=== PATIENT | female | born 2005 | race Caucasian/White ===

== ENCOUNTER 2025-02-04 11:05 | Outpatient (OUT) | payer BC, SELFPAY ==
--- OUTSIDE RECORDS SUMMARY | 2023-09-06 06:10 | XMS_ITS ---
Author Organization [facility] Servic es Address [address] [place] [address] Care Team Providers Care Office Worker Name Role Phone Milly Earl Primary Care Provider REASON FOR VISIT NEW PT DENTAL EXAM Encounters Encounter Location Date Provider Diagnosis [facility] [address] [place] [address] 09/06/2023 Milly Earl Plan Of Treatment No Information Progress Notes * GARRETT MARINDAQUANOB: 3 (19 yo F)Acc No.[id number]:09/06/2023 Patient: BRYCE STRAUSS Provider: Anne Marie Earl DDS :2005 A ge:18 Y S ex:Female Date:09/06/2023 Address:[address] [place], [place] [phone] Subjective: * Chief Complaints: * 1 . NEW PT DENTAL EXAM. * Medical History: Objective: * Vitals: Assessment: Plan: * Treatment: * Images: * Electronic signature of Sisi Earl DDS on 02/04/2025 at 11:13 AM EDT Sign off status: Pending * Provider: Anne Marie Earl DDS Date: 09/06/2023 Generated for Shelby palmer/Gerard/Lisa on: 0 02/04/2025 11:13 AM EDT
--- OUTSIDE RECORDS SUMMARY | 2024-11-19 04:30 | XMS_ITS ---
Author Organization [facility] Servic es Address [address] [place] [address] Care Team Providers Care Medical Billing Associate Name Role Phone Milly Earl Primary Care Provider REASON FOR VISIT FILLING Encounters Encounter Location Date Provider Diagnosis [address] [place] [address] 11/19/2024 Milly Earl Plan Of Treatment No Information Progress Notes * SHANDRA MARINOB: 3 (19 yo F)Acc No.[id number]:11/19/2024 Patient: BRYCE STRAUSS Provider: Anne Marie Earl DDS :2005 A ge:19 Y S ex:Female Date:11/19/2024 Address:[address] [place], [place] [phone] Subjective: * Chief Complaints: * 1 . FILLING. * Medical History: Objective: * Vitals: Assessment: Plan: * Treatment: * Images: * Electronic signature of Sisi Earl DDS on 02/04/2025 at 11:13 AM EDT Sign off status: Pending * Provider: Anne Marie Earl DDS Date: 11/19/2024 Generated for Shelby palmer/Gerard/Lisa on: 0 02/04/2025 11:13 AM EDT
--- OUTSIDE RECORDS SUMMARY | 2025-01-21 09:10 | XMS_ITS | Encounter Summary ---
Author Organization [facility] Address [address] [place] [address] Care Team Providers Care Drafting Engineer Name Role Phone Unallocated, Noms Provider [facility] Reason for Visit * Reason Comments Infertility Encounter Details Date Type Department Care Team (Late st Contact Info) Description 01/21/2025 9:10 AM EDT Office Visit [facility] [address] [place] [address] Bruno Govea DO [address] [place] [phone] Female infertility; PCOS (polycystic ovarian syndrome); Missed menses; Abnormal uterine bleeding (AUB); Elevated prolactin level Social History Tobacco Use Types Packs/Day Years Used Date Smoking Tobacco: Never Smokeless Tobacco: Never Alcohol Use Standard Drinks/Week Comments Never 0 (1 standard drink = 0.6 oz pur e alcohol) Comments No Sex and Gender Information Value Date Recorded Sex Assigned at Not on file Legal Sex Female 7:21 PM EDT Gender Identity Not on file Sexual Orientation Not on file documented as of this encounter Last Filed Vital Signs Vital Sign Reading Time Taken Comments Blood Pressure 122/78 01/21/2025 9:40 AM EDT Pulse - - Temperature - - Respiratory Rate - - Oxygen Saturation - - Inhaled Oxygen Concentration - - Weight 124 kg (274 lb) 01/21/2025 9:40 AM EDT Height - - Body Mass Index 41.66 11/24/2022 4:13 PM EDT documented in this encounter Progress Notes * Yari Rand, DRAIN LAYER - 01/21/2025 9:10 AM EDT Reason for Appointment: Patient ID: Jackelyn Fuentes is a 19 y.o. female who presents for Infertility Patient presents today for Acute Visit. and Consult appointment. MEDICATIONS Current Outpatient Medications Medication Instructions cyclobenzaprine (FLEXERIL) 10 mg, 3 times daily PRN ibuprofen 800 MG tablet Every 8 hours naproxen (NAPROSYN) 500 mg, 2 times daily with meals Vit-Fe Fumarate-FA ( Vitamins) 28-0.8 MG tablet TAKE 1 TABLET BY MOUTH DAILY for desire to conceive ALLERGIES No Known Allergies PROBLEMS Active Ambulatory Problems Diagnosis Date Noted No Active Ambulatory Problems Resolved Ambulatory Problems Diagnosis Date Noted No Resolved Ambulatory Problems Past Medical History: Diagnosis Date Asthma (HCC) HISTORY PAST MEDICAL HISTORY SOCIAL HISTORY Past Medical History: Diagnosis Date Asthma (HCC) Social History Tobacco Use Smoking status: Never Smokeless tobacco: Never Vaping Use Vaping status: Every Day Substances: Nicotine Substance Use Topics Alcohol use: Never Drug use: Never FAMILY HISTORY No family history on file. SURGICAL HISTORY History reviewed. No pertinent surgical history. REVIEW OF SYSTEMS Review of Systems: Review of Systems Constitutional: Negative. HENT: Negative. Eyes: Negative. Respiratory: Negative. Cardiovascular: Negative. Gastrointestinal: Negative. Genitourinary: Positive for menstrual problem. Musculoskeletal: Negative. Skin: Negative. Neurological: Negative. All other systems reviewed and are negative. Hematological: Negative. Endocrine: Negative. Allergic/Immunologic: Negative. OBJECTIVE Objective: Physical Exam Constitutional: Appearance: Normal appearance. She is well-developed. Cardiovascular: Rate and Rhythm: Normal rate and regular rhythm. Pulmonary: Effort: Pulmonary effort is normal. Breath sounds: Normal breath sounds. Abdominal: General: Bowel sounds are normal. There is no distension. Palpations: Abdomen is soft. Tenderness: There is no abdominal tenderness. There is no guarding or rebound. Musculoskeletal: General: No swelling. Normal range of motion. Right lower leg: No edema. Left lower leg: No edema. Neurological: Mental Status: She is alert and oriented to person, place, and time. Skin: General: Skin is warm and dry. Psychiatric: Mood and Affect: Mood normal. Behavior: Behavior normal. Vitals and nursing note reviewed. Exam conducted with a catcher plug present. Vitals: Estimated body mass index is 41.66 kg/m?? as calculated from the following: Height as of 11/24/22: 5' 8 . Weight as of this encounter: 274 lb. BP: 122/78 Patient's last menstrual period was 12/09/2024 (approximate). ASSESSMENT & PLAN ICD-10-CM 1. Female infertility N97.9 2. PCOS (polycystic ovarian syndrome) E28.2 POCT , urine manually resulted 3. Missed menses N92.6 POCT , urine manually resulted Pt being seen for PCOS and fertility. Pt is on adipex and will stop once conceives. Pt to start metformin at 500mg. Pt given labs and ultrasound orders and partner was given semen analysis. Pt to return to discuss femara in 3 months. Documented by Yari Rand LPN on behalf of: Bruno Govea DO documented in this encounter Plan of Treatment Upcoming Encounters Date Type Department Care Team (Late st Contact Info) Description 04/29/2025 9:40 AM EST Office Visit [facility] [address] [place] [phone] Bruno Govea DO [address] [place] [address] Pending Results Name Type Priority Associated Diagnoses Date /Time US Pelvis w/ TV Imaging Routine PCOS (polycystic ovarian syndrome) Abnormal uterine bleeding (AUB) 02/04/2025 11:01 AM EDT Scheduled Orders Name Type Priority Associated Diagnoses Orde r Schedule hCG, quantitative, Lab Routine PCOS (polycystic ovarian syndrome) Abnormal uterine bleeding (AUB) Ordered: 01/21/2025 TSH Lab Routine PCOS (polycystic ovarian syndrome) Abnormal uterine bleeding (AUB) Ordered: 01/21/2025 T4, free Lab Routine PCOS (polycystic ovarian syndrome) Abnormal uterine bleeding (AUB) Ordered: 01/21/2025 CBC and differential Lab Routine PCOS (polycystic ovarian syndrome) Abnormal uterine bleeding (AUB) Ordered: 01/21/2025 Follicle stimulating hormone Lab Routine PCOS (polycystic ovarian syndrome) Abnormal uterine bleeding (AUB) Ordered: 01/21/2025 Luteinizing hormone Lab Routine PCOS (polycystic ovarian syndrome) Abnormal uterine bleeding (AUB) Ordered: 01/21/2025 Hemoglobin A1c Lab Routine Abnormal uterine bleeding (AUB) Ordered: 01/21/2025 DHEA-sulfate Lab Routine PCOS (polycystic ovarian syndrome) Abnormal uterine bleeding (AUB) Ordered: 01/21/2025 DHEA Lab Routine PCOS (polycystic ovarian syndrome) Abnormal uterine bleeding (AUB) Expected: 01/21/2025 (Approximate), Expires: 01/21/2026 US Pelvis w/ TV Imaging Routine PCOS (polycystic ovarian syndrome) Abnormal uterine bleeding (AUB) Expected: 01/21/2025, Expires: 01/21/2026 Prolactin Lab Routine PCOS (polycystic ovarian syndrome) Abnormal uterine bleeding (AUB) Elevated prolactin level Ordered: 01/21/2025 Antimullerian hormone (AMH) Lab Routine PCOS (polycystic ovarian syndrome) Abnormal uterine bleeding (AUB) Expected: 01/21/2025 (Approximate), Expires: 01/21/2026 documented as of this encounter Procedures Procedure Name Priority Date/Time Associated Diagnosis Comments POCT , URINE Routine 01/21/2025 9:44 AM EDT PCOS (polycystic ovarian syndrome) Missed menses documented in this encounter Results * POCT , urine manually resulted (01/21/2025 9:44 AM EDT) Preg Test, Ur Negative Negative Urine 01/21/2025 9:44 AM EDT Bruno Jeferson DO POINT OF CARE TEST ENTER/EDIT OR DERABLES Final Result documented in this encounter Visit Diagnoses Diagnosis Female infertility Female infertility of unspecified origin PCOS (polycystic ovarian syndrome) Polycystic ovaries Missed menses Abnormal uterine bleeding (AUB) Elevated prolactin level documented in this encounter Care Teams Drafting Engineer Relationship Specialty Start Date End Date Unallocated, Noms Provider, [place] [address] PCP - General 11/24/22 documented as of this encounter
--- OUTSIDE RECORDS SUMMARY | 2025-02-04 09:30 | XMS_ITS | Encounter Summary ---
Author Organization [facility] Address [address] [place] [address] Care Team Providers Care Audiovisual Production Specialist Name Role Phone Unallocated, Noms Provider [facility] am[facility] Encounter Details Date Type Department Care Team (Latest Contact Info) Description 02/04/2025 9:30 AM EDT Ancillary Procedure [facility] [address] [place] [address] PCOS (polycystic ovarian syndrome); Abnormal uterine bleeding (AUB) Social History Tobacco Use Types Packs/Day Years [...] on file documented as of this encounter Plan of Treatment Upcoming Encounters Date Type Department Care Team (Late st Contact Info) Description 04/29/2025 9:40 AM EST Office Visit [facility] [address] [place] [phone] Bruno Govea DO [address] [place], [place] [phone] Pending Results Name Type Priority Associated Diagnoses Date /Time US Pelvis w/ TV Imaging Routine PCOS (polycystic ovarian syndrome) Abnormal uterine bleeding (AUB) 02/04/2025 11:01 AM EDT documented as of this encounter Visit Diagnoses Diagnosis PCOS (polycystic ovarian syndrome) Polycystic ovaries Abnormal uterine bleeding (AUB) documented in this encounter Care Teams Audiovisual Production Specialist Relationship Specialty Start Date End Date Unallocated, Noms Provider[place] [address] PCP - General 11/24/22 documented as of this encounter
--- OUTSIDE RECORDS SUMMARY | 2025-02-04 11:13 | XMS_ITS | Encounter Summary ---
Author Organization [facility] Address [address], [address] [place] [address] Care Team Providers Care Underpresser Hand Name Role Phone Willow Busby APRN, CNP Primary Care Provider Reason for Visit * Reason Onset Date Comments Medication Refill 01/29/2025 Encounter Details Date Type Department Care Team (Late st Contact Info) Description 01/29/2025 Refill [facility] [place] [address] [place] [address] Willow Busby, MELANIE - ANIMAL CARE TECHNICIAN [address] [phone] Medication Refill Social History Tobacco Use Types Packs/Day Years Used Date Smoking Tobacco: Never Smokeless Tobacco: Never Alcohol Use Standard Drinks/Week Comments Yes 0 (1 standard drink = 0.6 oz pur e alcohol) socially [facility] Utilities Answer Date Recorded In the past 12 months has [employer] electric, gas, oil, or water company threatened to shut off services in your home? No 08/19/2024 AUDIT-C Answer Date Recorded Q1: How often do you have a drink containing alcohol? Never 11/07/2022 Q2: How many drinks containi ng alcohol do you have on a typical day when you are drinking? Patient does not drink Q3: How often do you have si x or more drinks on one occasion? Never 11/07/2022 PHQ-2 Answer Date Recorded PHQ-9 Total Score 0 08/19/2024 Exercise Vital Sign Answer Date Recorde d On average, how many days pe r week do you engage in moderate to strenuous exercise (like a brisk walk)? 4 days 08/18/2024 On average, how many minutes do you engage in exercise at this level? 150+ min 08/18/2024 Hunger Vital Sign Answer Date Recorded Within the past 12 months, y ou worried that your food would run out before you got the money to buy more. Never true 08/19/19 25 Within the past 12 months, t he food you bought just didn't last and you didn't have money to get more. Never true 08/19/2024 PRAPARE - Transportation Answer Date Re corded In the past 12 months, has l ack of transportation kept you from medical appointments or from getting medications? No 07/28 In the past 12 months, has l ack of transportation kept you from meetings, work, or from getting things needed for daily living? No 08/19/2024 Housing Stability Vital Sign Answer Mic e Recorded In the last 12 months, was t here a time when you were not able to pay the mortgage or rent on time? No 08/19/2024 In the past 12 months, how m any times have you moved where you were living? 0 08/19/2024 At any time in the past [address] [facility], were you homeless or living in a retirement (including now)? No 08/19/2024 Food Insecurity Answer Date Recorded Within the past 12 months, y ou worried that your food would run out before you got the money to buy more. 1 08/19/2024 Within the past 12 months, t he food you bought just didn't last and you didn't have money to get more. 1 08/19/2024 Interpersonal Safety Domain Source: IP Abuse Scr eening Answer Date Recorded Read-Only, Retired: Physical Abuse Denies 11/07/2022 Read-Only, Retired: Verbal Abuse Denies 11/07/2022 Read-Only, Retired: Emotional abuse Denies 11/07/2022 Read-Only, Retired: Financial Abuse Denies 11/07/2022 Read-Only, Retired: Sexual abuse Denies 11/07/2022 Comments No Sex and Gender Information Value Date Recorded Sex Assigned at Female 08/18/2024 1:55 PM EST Legal Sex Female 10:09 AM EST Gender Identity Female 08/18/2024 1:55 PM EST Sexual Orientation Not on file documented as of this encounter Plan of Treatment Upcoming Encounters Date Type Department Care Team (Late st Contact Info) Description 04/28/2025 4:20 PM EST Clinical Support [facility] [place] [address] [place] [address] Hep B shot documented as of this encounter Visit Diagnoses Not on filedocumented in this encounter Care Teams Underpresser Hand Relationship Specialty Start Date End Date Willow Busby APRN - ANIMAL CARE TECHNICIAN [address] [place] [phone] PCP - General Family Medicine 08/19/24 documented as of this encounter
--- OUTSIDE RECORDS SUMMARY | 2025-02-04 11:13 | XMS_ITS | Encounter Summary ---
Author Organization [facility] Address [address] [place] [address] Care Team Providers Care Aircraft Engine Cylinder Mechanic Name Role Phone Unallocated, Noms Provider Primary Care [facility] Encounter Details Date Type Department Care Team (Late Contact Info) Description 01/21/2025 Bamboo flowsheet [facility] [address] [facility] [place] [address] Bruno Govea DO [address] [place], [place] [address] Social History Tobacco Use Types Packs/Day Years [...] Encounters Date Type Department Care Team (Late Contact Info) Description 04/29/2025 9:40 AM EST Office Visit [facility] [address] [facility] [place] [address] Bruno Govea DO [address] [facility] [address] [place], [facility] documented as of this encounter Visit Diagnoses Not on filedocumented in this encounter Care Teams Aircraft Engine Cylinder Mechanic Relationship Specialty Start Date End Date Unallocated, Noms Provider, [address] [place], [place] [phone] PCP - General 11/24/22 documented as of this encounter
--- OUTSIDE RECORDS SUMMARY | 2025-02-04 11:13 | XMS_ITS | Patient Health Record ---
Author Organization [facility] Address [address] [place] [address] Care Team Providers Care Blind Hanger Name Role Phone Milly Earl Primary Care Provider [phone] Dr. Charbel Brandon Unavailable [phone] Reason For Referral No Information Medications Medication SIG (Take, Route, Fr equency, Duration) Notes Start Date End Date Status Ibuprofen 800 MG 1 tablet with food o r milk as needed Orally Three times a day 07/29/2024 Active Encounters Encounter Location Date Provider Diagnosis [facility] [address] [place] [address] 08/19/2024 Charbel Sanchez [address] [place] [address] 07/29/2024 Charbel Sanchez Other dental procedu re status Z98.818 ; Encounter for dental examination and cleaning with abnormal findings Z01.21 ; Dental caries on pit and fissure surface penetrating into dentin K02.52 ; Acute gingivitis, plaque induced K05.00 and Necrosis of pulp K04.1 Assessments Encounter Date Diagnosis (ICD Code) Assessment Notes Treatment Notes Treatment Clinical Notes Section Notes 07/29/2024 Other dental procedure status (ICD-10 - Z98.818) 07/29/2024 Encounter for dental examination and cleaning with abnormal findings (ICD-10 - Z01.21) 07/29/2024 Dental caries on pit and fissure surface penetrating into dentin (ICD-10 - K02.52) 07/29/2024 Acute gingivitis, plaque induced (ICD-10 - K05.00) 07/29/2024 Necrosis of pulp (ICD-10 - K04.1) Plan Of Treatment No Information Insurance Providers Payer Name Payer Address Payer Phone Subscriber Number Group Number Insured Name Patient Relationship to Insured Coverage Start Date Coverage End Date [employer] [place] Medicaid [address] [place] [address] [id number] TANIAGARRETTE Self - patient is the insured [address] [facility] [address] [place] [address] [id number] BRYCE MARIN Self - patient is the insured [address] [facility] [address] [place] [id number] TANIAGARRETTE Self - patient is the insured 4 4 DENTAL [employer] [address] [place] [address] [id number] BRYCE MARIN Self - patient is the insured 4
--- OUTSIDE RECORDS SUMMARY | 2025-02-04 11:13 | XMS_ITS | Encounter Summary ---
Author Organization [facility] Address [address], [address] [place] [address] Care Team Providers Care Angio Technologist Name Role Phone Willow Busby APRN - DATA CONTROL ASSISTANT Primary Care Provider Encounter Details Date Type Department Care Team (Late st Contact Info) Description 08/20/[address] [facility] [place] [address] [place] [address] Provider, MD Liat Social History Tobacco Use Types Packs/Day Years Used Date Smoking Tobacco: Never Smokeless Tobacco: Never Alcohol Use Standard Drinks/Week Comments Yes 0 (1 standard drink = 0.6 oz pur e alcohol) socially [facility] Utilities Answer Date Recorded In the past 12 months has [employer] electric, gas, oil, or water company threatened [...] any time in the past 12 m [facility], were you homeless or living in a fpc (including now)? No 08/19/2024 Food Insecurity Answer [...] Description 04/28/2025 4:20 PM EST Clinical Support [facility] [place] [address] [place] [address] Hep B shot documented as of this encounter Procedures Procedure Name Priority Date/Time Associated Diagnosis Comments LAB RESULT Routine 12/29/2022 10:07 AM EDT documented in this encounter Results * LAB RESULT (12/29/2022 10:07 AM EDT) us Historical Provider CHEMISTRY ORDERABLES Shanice l Result documented in this encounter Visit Diagnoses Not on filedocumented in this encounter Care Teams Angio Technologist Relationship Specialty Start Date End Date Willow Busby, SLAT GRADER - DATA CONTROL ASSISTANT [address] [place] [address] PCP - General Family Medicine 08/19/24 documented as of this encounter
--- OUTSIDE RECORDS SUMMARY | 2025-02-04 11:13 | XMS_ITS | Clinical Summary ---
Author Organization [facility] Address [address], [address] [place] [address] Care Team Providers Care Activity Leader Name Role Phone Willow Busby APRN - COAT CHECK ATTENDANT Primary Care Provider Allergies No known active allergies Medications naproxen (NAPROSYN) 500 MG tablet Take 1 tablet by mouth 2 times daily (with meals) 20 tablet 5 Active Vit-Fe Fumarate-FA ( VITAMINS) 28-0.8 MG TABS Take 1 tablet by mouth daily For desire to conceive 30 tablet 1 5 Active Vit-Fe Fumarate-FA ( VITAMINS) 28-0.8 MG TABS Take 1 tablet by mouth daily For desire to conceive 30 tablet 2 5 01/30/20 25 Discontinu ed(REORDER ) phentermine (ADIPEX-P) 37.5 MG tabletIndication s:Encounter for weight management,Morbi d obesity with BMI of 40.0-44.9, adult (HCC),Use teratogenic medication in female of reproductive age Take 1 tablet by mouth every morning (before breakfast) for 30 days. BMI 42.8 32 # weight loss, doing well Max Daily Amount: 37.5 mg 30 tablet 5 01/23/20 25 Active Problems Problem Noted Date Diagnosed Date Abnormal thyroid stimulating hormone (TSH) level 07/15/2022 Acanthosis nigricans 07/15/2022 Amenorrhea 07/15/2022 Elevated blood pressure read ing without diagnosis of hypertension 07/15/2022 Exposure to severe acute res piratory syndrome coronavirus 2 (SARS-CoV-2) 07/15/2022 Headache 07/15/2022 Loss of hair 07/15/2022 Nasal congestion 07/15/2022 Poor sleep pattern 07/15/2022 Presence of intrauterine contraceptive device Acute pharyngitis 02/03/2022 Abnormal uterine bleeding 11/01/2021 Adult body mass index 40 and over 11/01/2021 Morbid obesity 11/01/2021 Obstructive sleep apnea syndrome 11/01/2021 Encounters Date Type Department Care Team Description 01/29/[address] [address] Willow Busby, GUN PERFORATOR - COAT CHECK ATTENDANT Medication Refill 12/23/2024 2:20 PM EDT Office Visit [address] [address] Willow Busby, GUN PERFORATOR - COAT CHECK ATTENDANT Encounter for weight management (Primary Dx); Morbid obesity with BMI of 40.0-44.9, adult (HCC); Use teratogenic medication in female of reproductive age; Need for hepatitis B vaccination 11/27/2024 Abstract [facility] Care [address] [address] Willow Busby GUN PERFORATOR - COAT CHECK ATTENDANT 11/25/2024 4:15 PM EDT Clinical Support [address] [address] Encounter for weight management (Primary Dx); Morbid obesity with BMI of 40.0-44.9, adult (HCC); Use teratogenic medication in female of reproductive age; Blood pressure check 11/21/2024 11:45 AM EDT Clinical Support [address] [address] Encounter for weight management; Morbid obesity with BMI of 40.0-44.9, adult (HCC) 11/13/[address] [address] Willow Busby, MELANIE - QUIANA Medication Refill from Last 3 Months Immunizations Immunization Administration Dates Next Due Hep B, ENGERIX-B, (age 20y+), IM, 1mL 12/23/2024 ,10/21/2024 MMR, PRIORIX, M-M-R II, (age 12m+), SC, 0.5mL Family History Medical History Relation Name Comments Kidney Cancer Maternal Grandfather Liver Cancer Maternal Grandfather Arthritis Maternal Grandmother COPD Paternal Grandmother Relation Name Status Comments Brother Alive Father Alive Half-Brother Alive Half-Sister Alive Maternal Grandfather Alive Maternal Grandmother Alive Mother Alive Paternal Grandfather Paternal Grandmother Alive Social History Tobacco Use Types Packs/Day Years Used Date Smoking Tobacco: Never Smokeless Tobacco: Never Tobacco Cessation:Counseling Given: Not Answered Alcohol Use Standard Drinks/Week Comments Yes 0 (1 standard drink = 0.6 oz pur e alcohol) [employer] Answer Date Recorded In the past 12 months has th e [employer], gas, oil, or water [employer] threatened to shut off services in your [...] any time in the past [address] [facility], were you homeless or living [...] PM EST Sexual Orientation Not on file Last Filed Vital Signs Vital Sign Reading Time Taken Comments Blood Pressure 122/80 12/23/2024 2:32 PM EDT Pulse 78 12/23/2024 2:32 PM EDT Temperature 36.8 C (98.2 F) 09/20/2024 2:38 PM EDT Respiratory Rate 24 09/20/2024 2:38 PM EDT Oxygen Saturation 99% 12/23/2024 2:32 PM EDT Inhaled Oxygen Concentration - - Weight 124.7 kg (275 lb) 12/23/2024 2:32 PM EDT Height 170.7 cm (5' 7.21 ) 12/23/2024 2:32 PM ED T Body Mass Index 42.8 12/23/2024 2:32 PM EDT Plan of Treatment Upcoming Encounters Date Type Department Care Team (Late st Contact Info) Description 04/28/2025 4:20 PM EST Clinical Support [facility] Care [place] [address] [place] [address] Hep B shot Health Maintenance Due Date Last Done Comments Hepatitis A vaccine (2 of 2 - 2-dose series) 08/23/2008 02/22/2008 HIV screen 2018 HPV vaccine (1 - 3-dose series) 2018 Chlamydia/GC screen 2019 Meningococcal B vaccine (1 of 2 - Standard) 2019 Hepatitis C screen 2021 COVID-19 Vaccine ( season) 2024 07/04/2021, 12/23/2020, 12/02/2020 Pap smear 2024 Varicella vaccine (1 of 2 - 13+ 2-dose series) 10/21/2024 Flu vaccine (#1) 01/24/2025 06/05/2009 Depression Screen 08/19/2025 08/19/2024, 08/19/2024 DTaP/Tdap/Td vaccine (7 - Td or Tdap) 11/18/2025 11/19/2015, 02/22/2008, 02/16/2007, Additional history exists Pneumococcal 0-49 years Vaccine Aged Out 2003, 2003 No longer eligibl e based on patient's age to complete this topic Hib vaccine Completed 02/22/2008, 10/24, 2003, Additional history exists Polio vaccine Completed 02/22/2008, 01/25, 2003, Additional history exists Meningococcal (ACWY) vaccine Aged Out 11/19/2015 No longer eligible based on patient's age to complete this topic Measles,Mumps,Rubella (MMR) vaccine Discontinued 09/23/2024, 02/22/2008, 02/16/2007, Additional history exists Hepatitis B vaccine Completed 12/23/2024, 10/21/2024, 2003, Additional history exists Procedures Procedure Name Priority Date/Time Associated Diagnosis Comments POCT URINE Routine 12/23/2024 3:11 PM EDT Use teratogenic medication in female of reproductive age from Last 3 Months Results * POCT urine (12/23/2024 3:11 PM EDT) Preg Test, Ur Negative Negative Control Present 12/23/2024 3:11 PM EDT Willow Busby GUN PERFORATOR - COAT CHECK ATTENDANT POINT OF CARE TEST TAPAN LAU Final Result from Last 3 Months Insurance BC Care Teams Activity Leader Relationship Specialty Start Date End Date Willow Busby, GUN PERFORATOR - COAT CHECK ATTENDANT [address] [place], [place] [phone] PCP - General Family Medicine 08/19/24
[2025-02-04 11:45] LABS: Hematocrit 36.9 % (36.0-48.0); Hemoglobin 13.1 g/dL (12.0-16.0); Immature Granulocytes Abs Auto 0.02 10^3/uL (0.00-0.03); Immature Granulocytes Pct Auto 0.2 % (0.0-0.5); Lymphocytes Absolute Auto 2.8 10^3/uL (1.2-3.8); Mean Corpuscular HGB Conc 35.5 g/dL (29.9-35.2); Mean Corpuscular Hemoglobin 32.0 pg (26.7-34.0); Mean Corpuscular Volume 90.0 fL (81.0-99.0); Platelet Count 289 10^3/uL (150-450); Red Blood Count 4.10 10^6/uL (4.20-5.40); White Blood Count 8.8 10^3/uL (4.0-11.0)
[2025-02-04 12:16] LABS: Thyroid Stimulating Hormone 3.657 uIU/mL (0.358-3.740)
[2025-02-05 08:09] LABS: FSH 4.3 mIU/mL (.)
== END 2025-02-04 11:06 | disposition home or self-care (01) ==
PROVIDERS: PCP Nurse Practitioner Primary Care; Visit Provider Obstetrics & Gynecology
DX: E28.2 Polycystic ovarian syndrome (principal); N93.9 Abnormal uterine and vaginal bleeding, unspecified; R79.89 Other specified abnormal findings of blood chemistry
CPT/HCPCS: 36415; 82397; 82626; 82627; 83001; 83002; 83036; 84146; 84439; 84443; 84702; 85025

== ENCOUNTER 2025-02-26 17:00 | Outpatient (RCR) | payer BC, SELFPAY ==
--- OUTSIDE RECORDS SUMMARY | 2023-09-06 06:10 | XMS_ITS ---
Author Organization [facility] Servic es Address [address] [place] [address] Care Team Providers Care Tipple Supervisor Name Role Phone Milly Earl Primary Care Provider [phone] REASON FOR VISIT NEW PT DENTAL EXAM Encounters Encounter Location Date Provider Diagnosis [facility] [address] [place] [address] 09/06/2023 Milly Earl Plan Of Treatment No Information Progress Notes * GARRETT MARINDAQUANOB: 3 (19 yo F)Acc No.[id number]:09/06/2023 Patient: BRYCE STRAUSS Provider: Anne Marie Earl DDS :2005 A ge:18 Y S ex:Female Date:09/06/2023 Address:[address] [place], [place] [phone] Subjective: * Chief Complaints: * 1 . NEW PT DENTAL EXAM. * Medical History: Objective: * Vitals: Assessment: Plan: * Treatment: * Images: * Electronic signature of Sisi Earl DDS on 02/26/2025 at 05:03 PM EDT Sign off status: Pending * Provider: Anne Marie Earl DDS Date: 09/06/2023 Generated for Shelby palmer/Gerard/Lisa on: 0 02/26/2025 05:03 PM EDT
--- OUTSIDE RECORDS SUMMARY | 2024-11-19 04:30 | XMS_ITS ---
Author Organization [facility] Servic es Address [address] [place] [address] Care Team Providers Care Clinical Dental Technician Name Role Phone Milly Earl Primary Care Provider [phone] REASON FOR VISIT FILLING Encounters Encounter Location Date Provider Diagnosis [address] [place] [address] 11/19/2024 Milly Earl Plan Of Treatment No Information Progress Notes * SHANDRA MARINOB: 3 (19 yo F)Acc No.[id number]:11/19/2024 Patient: BRYCE STRAUSS Provider: Anne Marie Earl DDS :2005 A ge:19 Y S ex:Female Date:11/19/2024 Address:[address] [place], [place] [phone] Subjective: * Chief Complaints: * 1 . FILLING. * Medical History: Objective: * Vitals: Assessment: Plan: * Treatment: * Images: * Electronic signature of Sisi Earl DDS on 02/26/2025 at 05:03 PM EDT Sign off status: Pending * Provider: Anne Marie Earl DDS Date: 11/19/2024 Generated for Shelby palmer/Gerard/Lisa on: 0 02/26/2025 05:03 PM EDT
--- OUTSIDE RECORDS SUMMARY | 2025-02-11 04:00 | XMS_ITS ---
Author Organization [facility] Address [address] [place] [address] Care Team Providers Care Physician'S Aide Name Role Phone Milly Earl Primary Care Provider [phone] Jayde Arias Unavailable [phone] REASON FOR VISIT PROPHY Encounters Encounter Location Date Provider Diagnosis [address] [place] [address] 02/11/2025 Jayde Rodriguez Plan Of Treatment No Information Progress Notes * GARRETT MARINEDOB: 3 (19 yo F)Acc No.[id number]:02/11/2025 Patient: BRYCE STRAUSS Provider: Giovanni Horn :2005 A ge:19 Y S ex:Female Date:02/11/2025 Address:[address] [place], [place] [phone] Pcp:Milly Earl Subjective: * Chief Complaints: * 1 . PROPHY. * Medical History: Objective: * Vitals: Assessment: Plan: * Treatment: * Images: * Electronic signature of Moraima Rodriguez on 02/26/2025 at 05:03 PM EDT Sign off status: Pending * Provider: Giovanni Horn Date: 02/11/2025 Generated for Shelby palmer/Gerard/eTransmitting on: 0 02/26/2025 05:03 PM EDT
--- OUTSIDE RECORDS SUMMARY | 2025-02-13 10:10 | XMS_ITS | Encounter Summary ---
Author Organization [facility] Address [address] [place] [address] Care Team Providers Care Certified Breastfeeding Educator Name Role Phone Unallocated, Noms Provider Primary Care Provi ameena Reason for Visit * Reason Comments Infertility Polycystic Ovary Syndrome Encounter Details Date Type Department Care Team (Late st Contact Info) Description 02/13/2025 10:10 AM EDT Office Visit [facility] [address] [place] [address] Bruno Govea DO [address] [place], [place] [id number] PCOS (polycystic ovarian syndrome); Female infertility; Other specified hypothyroidism Social History Tobacco Use Types Packs/Day Years [...] Sign Reading Time Taken Comments Blood Pressure 110/70 02/13/2025 10:42 AM EDT Pulse - - Temperature - - Respiratory Rate - - Oxygen Saturation - - Inhaled Oxygen Concentration - - Weight 125 kg (275 lb) 02/13/2025 10:42 AM EDT Height - - Body Mass Index 41.81 11/24/2022 4:13 PM EDT documented in this encounter Progress Notes * Willow Barnard LPN - 02/13/2025 10:10 AM EDT Reason for Appointment: Patient ID: Jackelyn Fuentes is a 19 y.o. female who presents for Infertility and Polycystic Ovary Syndrome Patient presents today for Follow up appointment to discuss results. MEDICATIONS Current Outpatient Medications Medication Instructions metFORMIN (GLUCOPHAGE) 500 mg, Oral, Daily with breakfast Vit-Fe Fumarate-FA ( Vitamins) 28-0.8 MG tablet [...] Respiratory: Negative. Cardiovascular: Negative. Gastrointestinal: Negative. Genitourinary: Negative. Musculoskeletal: Negative. Skin: Negative. Neurological: Negative. All [...] nursing note reviewed. Exam conducted with a investigative writer present. Vitals: Estimated body mass index is 41.81 kg/m?? as calculated from the following: Height as of 11/24/22: 5' 8 . Weight as of this encounter: 275 lb. BP: 110/70 Patient's last menstrual period was 01/24/2025 (approximate). ASSESSMENT & PLAN ICD-10-CM 1. PCOS (polycystic ovarian syndrome) E28.2 2. Female infertility N97.9 Patient and spouse present to office to review labs and ultrasound. Patient and spouse desire to disire fertility planning as well. After reviewing labs patient will start on Synthroid 25mcg daily and advised it would also be beneficial to start a daily Aspirin 81mg. Synthroid will be sent to [facility]. Patient given handout for fertility and will call office when she starts her cycle. Pat ient to setup 4 month follow up appointment if not conceived by that time. Patient given direct extension to Director Payment for fertility planning. Patient to setup 4 month follow up fertility appointment. Patient will start on Femara with next cycle. Documented by Willow Barnard LPN on behalf of: Bruno Govea DO documented in this encounter Plan of Treatment Upcoming Encounters Date Type Department Care Team (Late st Contact Info) Description 06/02/2025 10:10 AM EST Office Visit [facility] [address] [place] [address] Bruno Govea DO [address] [place] [address] documented as of this encounter Visit Diagnoses Diagnosis PCOS (polycystic ovarian syndrome) Polycystic ovaries Female infertility Female infertility of unspecified origin Other specified hypothyroidism documented in this encounter Care Teams Certified Breastfeeding Educator Relationship Specialty Start Date End Date Unallocated, Noms Rina, [place] [address] PCP - General 11/24/22 documented as of this encounter
--- OUTSIDE RECORDS SUMMARY | 2025-02-26 17:03 | XMS_ITS | Encounter Summary ---
Author Organization [facility] Address [address] [place] [address] Care Team Providers Care Education Administrator Name Role Phone Unallocated, Noms Provider Primary Care Provi ameena Encounter Details Date Type Department Care Team (Late st Contact Info) Description 02/07/2025 Abstract [facility] [place] [address] Bruno Govea DO [address] [place], [facility] Social History Tobacco Use Types Packs/Day Years [...] 10:10 AM EST Office Visit [facility] [place] [address] Bruno Govea DO [address] [place], [place] [id number] documented as of this encounter Visit Diagnoses Not on filedocumented in this encounter Care Teams Education Administrator Relationship Specialty Start Date End Date Unallocated, Noms Provider, [address] [place] [address] PCP - General 11/24/22 documented as of this encounter
--- OUTSIDE RECORDS SUMMARY | 2025-02-26 17:03 | XMS_ITS | Clinical Summary ---
Author Organization [facility] Address [address], [address] [place] [address] Care Team Providers Care Garment Manufacturer Name Role Phone Willow Busby APRN - COMPUTERIZED TABLE CUTTER Primary Care Provider Allergies No known active [...] 2 5 01/30/20 25 Discontinu ed(REORDER ) Active Problems Problem Noted Date Diagnosed Date [...] Type Department Care Team Description 01/29/[address] [facility] [address] [place] [address] Willow Busby APRN - CNP Medication Refill 12/23/2024 2:20 PM EDT Office [facility] [address] [place] [address] Willow Busby APRN - CNP Encounter for weight management (Primary Dx); Morbid obesity with BMI of 40.0-44.9, adult (HCC); Use teratogenic medication in female of reproductive age; Need for hepatitis B vaccination 11/27/2024 Abstract [facility] Care [place] [phone] Willow Busby APRN - CNP from Last 3 Months Immunizations Immunization Administration Dates Next Due Hep B, ENGERIX-B, RECOMBIVAX-HB, (age 20y+), IM, 1mL 12/23/2024,10/21/2024 MMR, PRIORIX, M-M-R II, (age 12m+), SC, [...] = 0.6 oz pur e alcohol) socially [facility] Utilities Answer Date Recorded In the past 12 months has th e electric, gas, oil, or water company threatened [...] any time in the past 12 m [facility], were you homeless or living in a half-way (including now)? No 08/19/2024 Food Insecurity Answer [...] Description 04/28/2025 4:20 PM EST Clinical Support [facility] Care [place] [address] [place] [id number] Hep B shot Health Maintenance Due Date Last Done Comments Hepatitis A vaccine (2 of 2 - 2-dose series) 08/23/2008 02/22/2008 HIV screen 2018 HPV vaccine (1 - 3-dose series) 2018 Chlamydia/GC screen 2019 Meningococcal B vaccine (1 of 2 - Standard) 2019 Hepatitis C screen 2021 Pap smear 2024 Varicella vaccine (1 of 2 - 13+ 2-dose series) 10/21/2024 Flu vaccine (#1) 01/24/2025 06/05/2009 COVID-19 Vaccine ( season) 2025 07/04/2021, 12/23/2020, 12/02/2020 Depression Screen 08/19/2025 08/19/2024, 08/19/2024 DTaP/Tdap/Td vaccine [...] Present 12/23/2024 3:11 PM EDT Willow Busby GERIATRIC NURSING ASSISTANT - COMPUTERIZED TABLE CUTTER POINT OF CARE TEST [place] Final Result from Last 3 Months Insurance [place] BCBS Care Teams Garment Manufacturer Relationship Specialty Start Date End Date Willow Busby, GERIATRIC NURSING ASSISTANT - COMPUTERIZED TABLE CUTTER [address] [place] [id number] PCP - General Family Medicine 08/19/24
--- OUTSIDE RECORDS SUMMARY | 2025-02-26 17:03 | XMS_ITS | Encounter Summary ---
Author Organization [facility] Address [address] [place] [address] Care Team Providers Care Winderman Name Role Phone Unallocated, Noms Provider Primary Care Provi ameena Encounter Details Date Type Department Care Team (Late Contact Info) Description 02/13/2025 Bamboo flowsheet [facility] [address] [place] [address] Bruno Govea DO [address] [place], [facility] Social History Tobacco Use Types Packs/Day Years [...] Department Care Team (Late Contact Info) Description 06/02/2025 10:10 AM EST Office Visit [facility] [place] [address] Bruno Govea DO [address], [facility] documented as of this encounter Visit Diagnoses Not on filedocumented in this encounter Care Teams Winderman Relationship Specialty Start Date End Date Unallocated, Noms Provider, [address] [place] [address] PCP - General 11/24/22 documented as of this encounter
--- OUTSIDE RECORDS SUMMARY | 2025-02-26 17:03 | XMS_ITS | Encounter Summary ---
Author Organization [facility] Address [address] [place] [address] Care Team Providers Care Alum Plant Supervisor Name Role Phone Willow Busby APRN - SALES ORDER PROCESSOR Primary Care Provider Encounter Details Date Type Department Care Team (Late st Contact Info) Description 08/20/2024 Orders Only [facility] [place] [address] [place] [address] Provider, MD Liat Social History Tobacco Use Types Packs/Day Years Used Date Smoking Tobacco: Never Smokeless Tobacco: Never Alcohol Use Standard Drinks/Week Comments Yes 0 (1 standard drink = 0.6 oz pur e alcohol) socially [facility] Utilities Answer Date Recorded In the past 12 months has [employer] electric, gas, oil, or water company threatened [...] any time in the past 12 m [facility], were you homeless or living in a mcfp (including now)? No 08/19/2024 Food Insecurity Answer [...] Description 04/28/2025 4:20 PM EST Clinical Support [facility] Care [place] [address] [place] [address] Hep B shot documented as of this encounter Procedures Procedure Name Priority Date/Time Associated Diagnosis Comments LAB RESULT Routine 12/29/2022 10:07 AM EDT documented in this encounter Results * LAB RESULT (12/29/2022 10:07 AM EDT) us Historical Provider CHEMISTRY ORDERABLES Shanice l Result documented in this encounter Visit Diagnoses Not on filedocumented in this encounter Care Teams Alum Plant Supervisor Relationship Specialty Start Date End Date Willow Busby, SUBWAY CONDUCTOR - SALES ORDER PROCESSOR [address] [place] [address] PCP - General Family Medicine 08/19/24 documented as of this encounter
--- OUTSIDE RECORDS SUMMARY | 2025-02-26 17:03 | XMS_ITS | Encounter Summary ---
Author Organization [facility] Address [address] [place] [address] Care Team Providers Care Plate Stacker Hand Name Role Phone Unallocated, Noms Provider MD Primary Care Provi ameena Encounter Details Date Type Department Care Team (Late st Contact Info) Description 02/26/2025 Telephone [facility] [address] [place] [address] [place] [phone] Arlene Olson MA Social History Tobacco Use Types Packs/Day Years [...] on file documented as of this encounter Miscellaneous Notes * Telephone Encounter - Arlene Olson MA - 02/26/2025 2:55 PM EDT Pt called stating faint +UPT. Pt requesting blood work to confirm. Order sent to [facility] documented in this encounter Plan of Treatment Upcoming Encounters Date Type Department Care Team (Late st Contact Info) Description 06/02/2025 10:10 AM EST Office Visit [facility] [address] [place] [address] Bruno Govea DO [address] [place] [address] Scheduled Orders Name Type Priority Associated Diagnoses Orde r Schedule hCG, quantitative, Lab Routine Positive urine test ([facility]) 2 Occurrences starting 02/26/2025 until 02/26/2026 documented as of this encounter Visit Diagnoses Diagnosis Positive urine test ([facility]) documented in this encounter Care Teams Plate Stacker Hand Relationship Specialty Start Date End Date Unallocated, Noms Rina, [address] [place] [address] PCP - General 11/24/22 documented as of this encounter
--- OUTSIDE RECORDS SUMMARY | 2025-02-26 17:03 | XMS_ITS | Patient Health Record ---
Author Organization [facility] Address [address] [place] [address] Care Team Providers Care Director Hospice Operations Name Role Phone Mady Milly Primary Care Provider [phone] Dr. Charbel Brandon Unavailable [phone] Jayde Rodriguez Unavailable [phone] Reason For Referral No Information Medications Medication SIG (Take, Route, Fr equency, Duration) Notes Start Date End Date Status Ibuprofen 800 MG 1 tablet with food o r milk as needed Orally Three times a day 07/29/2024 Active Encounters Encounter Location Date Provider Diagnosis [facility] [address] [place] [address] 08/19/2024 Charbel Sanchez [address] [place] [address] 07/29/2024 Charbel Sanchez Other dental procedu re [...] Care[place]our[place] e [place] Medicaid [address] [place] [address] [id number] TANIAGARRETTE Self - patient is the insured 4 4 Dental [facility] [address] [facility] [place] [address] [id number] BRYCE MARIN Self - patient is the insured 4 4 Dental [facility] [address] [place] [address] [phone] [id number] BRYCE MARIN Self - patient is the insured 4 4 DENTAL [employer] [address] [place] [phone] [id number] BRYCE MARIN Self - patient is the insured 4
--- OUTSIDE RECORDS SUMMARY | 2025-02-26 17:03 | XMS_ITS | Clinical Summary ---
Author Organization [facility] Address [address] [place] [address] Care Team Providers Care Sharepoint Application Architect Name Role Phone Unallocated, Noms Provider Primary Care Provi ameena Allergies No known active allergies Medications Vit-Fe Fumarate-FA ( Vitamins) 28-0.8 MG tablet TAKE 1 TABLET BY MOUTH DAILY for desire to conceive Active metFORMIN (Glucophage) 500 MG tabletIndications: PCOS (polycystic ovarian syndrome),Abnormal uterine bleeding (AUB) Take 1 tablet (500 mg) by mouth in the morning. Take with meals. 30 tablet 11 01/22/20 25 026 Active levothyroxine (Synthroid, Levoxyl) 25 MCG tabletIndications: PCOS (polycystic ovarian syndrome),Other specified hypothyroidism Take 1 tablet (25 mcg) by mouth in the morning. Take before meals. 30 tablet 3 02/14/20 25 025 Active cyclobenzaprine (Flexeril) 10 MG tablet Take 10 mg by mouth 3 (three) times a day as needed for muscle spasms 09/21/19 25 025 Discontinued ibuprofen 800 MG tablet every 8 (eight) hours 07/29/19 25 025 Discontinued naproxen (Naprosyn) 500 MG tablet Take 500 mg by mouth in the morning and 500 mg in the evening. Take with meals. 09/21/19 25 08/21/2 025 Discontinued Encounters Date Type Department Care Team Description 02/26/2025 Telephone [facility] [address] [place] [address] Arlene Olson MA 02/13/2025 10:10 AM EDT Office Visit [facility] [address] [place] [address] Bruno Govea DO PCOS (polycystic ovarian syndrome); Female infertility; Other specified hypothyroidism 02/13/2025 Bamboo flowsheet [facility] [address] [place] [address] Bruno Govea DO 02/12/2025 Telephone [facility] [address] [place] [address] Archana Dillard MA 02/07/2025 Abstract [facility] [address] [place] [address] Bruno Govea DO 02/04/2025 9:30 AM EDT Ancillary Procedure [facility] [address] [place] [address] PCOS (polycystic ovarian syndrome); Abnormal uterine bleeding (AUB) 02/04/2025 Clinisync Result Encounter [facility] External Department Unsolicited Bruno Govea DO 01/21/2025 9:10 AM EDT Office Visit [facility] [address] [place] [address] Bruno Govea DO Female infertility; PCOS (polycystic ovarian syndrome); Missed menses; Abnormal uterine bleeding (AUB); Elevated prolactin level 01/21/2025 Bamboo flowsheet [facility] [address] [place] [address] Bruno Govea DO from Last 3 Months Social History Tobacco Use Types Packs/Day Years Used Date Smoking Tobacco: Never Smokeless Tobacco: Never Tobacco Cessation:Counseling Given: No Alcohol Use Standard Drinks/Week Comments Never 0 (1 standard drink = 0.6 oz pur e alcohol) Comments No Sex and Gender Information Value Date Recorded Sex Assigned at Not on file Legal Sex Female 7:21 PM EDT Gender Identity Not on file Sexual Orientation Not on file Last Filed Vital Signs Vital Sign Reading Time Taken Comments Blood Pressure 110/70 02/13/2025 10:42 AM EDT Pulse - - Temperature - - Respiratory Rate - - Oxygen Saturation - - Inhaled Oxygen Concentration - - Weight 125 kg (275 lb) 02/13/2025 10:42 AM EDT Height 172.7 cm (5' 8 ) 11/24/2022 4:13 PM EDT Body Mass Index 41.81 11/24/2022 4:13 PM EDT Plan of Treatment Upcoming Encounters Date Type Department Care Team (Late st Contact Info) Description 06/02/2025 10:10 AM EST Office Visit [facility] [address] [facility] [place] [id number] Bruno Govea DO [address] [facility] [place] [address] Health Maintenance Due Date Last Done Comments Influenza Vaccine (#1) 2025 04/12/2023 Procedures Procedure Name Priority Date/Time Associated Diagnosis Comments ALL DEHYDROEPIANDROSTERONE Routine 02/04 11:27 AM EDT ALL ANTI-MULLERIAN HORMONE Routine 02/04 11:27 AM EDT TBH PROLACTIN Routine 02/04/2025 11:27 AM EDT ALL FOLLICLE STIMULATING HORMONE Routine 02/04/2025 11:27 AM EDT ALL LUTEINIZING HORMONE Routine 02/05/20 11:27 AM EDT ALL DHEA SULFATE Routine 02/04/2025 11:27 AM EDT ALL THYROXINE (T4) FREE Routine 02/05/20 11:27 AM EDT TBH PREG QUANT HCG Routine 02/04/2025 11:27 AM EDT ALL THYROID STIM HORMONE Routine 11:27 AM EDT MLR HEMOGLOBIN A1C Routine 02/04/2025 11:27 AM EDT ALL CBC WITH AUTO DIFF Routine 11:27 AM EDT US PELVIC COMPLETE W/ TV Routine 11:01 AM EDT PCOS (polycystic ovarian syndrome) Abnormal uterine bleeding (AUB) POCT , URINE Routine 01/21/2025 9:44 AM EDT PCOS (polycystic ovarian syndrome) Missed menses from Last 3 Months Results * TBH PROLACTIN (02/04/2025 11:27 AM EDT) PROLACTIN 26.0 4.8 - 33.4 ng/mL TBH Comment: Performed at: [facility] [id number] Railroad Worker: Mauricio Saldivar PhD, Phone: [phone] 02/04/2025 11:2 7 AM EDT 02/04/2025 11:32 AM EDT Narrative CLINISYNC - 02/05/2025 8:09 AM EDT us Bruno Jeferson DO CLINISYNC Final Result CLINISYNC TB * TBH PREG QUANT HCG (02/04/2025 11:27 AM EDT) HCG QUANTITATIVE <1 mIU/mL TBH Comment: 5-50 0.2-1 WEEK 50-500 1-2 WEEKS 100-5,000 2-3 WEEKS 500-10,000 3-4 WEEKS 1,000-50,000 4-5 WEEKS 10,000-100,000 5-6 WEEKS 15,000-200,000 6-8 WEEKS 10,000-100,000 2-3 MONTHS 02/04/2025 11:2 7 AM EDT 02/04/2025 11:32 AM EDT Narrative CLINISYNC - 02/04/2025 12:17 PM EDT Bruno Jeferson DO CLINISYNC Final Result Performing Organization Address [facility] Co de Phone Number [facility] * MLR HEMOGLOBIN A1C (02/04/2025 11:27 AM EDT) GLYCOHEMOGLOBIN A1C 4.9 4.5 - 6.2 % [facility] Comment: ADA RECOMMENDED LIMIT 4.0 - 6.0 ADA THERAPEUTIC TARGET < 7.0 ACTION SUGGESTED > 7.0 ESTIMATED AVERAGE GLUCOSE 94 mg/dL TB 02/04/2025 11:2 7 AM EDT 02/04/2025 11:32 AM EDT Narrative CLINISYNC - 02/04/2025 11:57 AM EDT Brunosteven Kowalskio DO DELGADOISYNC Final Result Performing Organization Address [facility] de Phone Number [facility] * ALL THYROXINE (T4) FREE (02/04/2025 11:27 AM EDT) FREE T4 1.12 0.76 - 1.46 ng/dL TB 02/04/2025 11:2 7 AM EDT 02/04/2025 11:32 AM EDT Narrative CLINISYNC - 02/04/2025 2:32 PM EDT Brunosteven Kowalskio DO DELGADOISYNC Final Result Performing Organization Address [facility] de Phone Number [facility] * ALL THYROID STIM HORMONE (02/04/2025 11:27 AM EDT) THYROID STIMULATING HORMONE 3.657 0.358 - 3.740 uIU/mL TB 02/04/2025 11:2 7 AM EDT 02/04/2025 11:32 AM EDT Narrative CLINISYNC - 02/04/2025 12:17 PM EDT Bruno Jeferson DO CLINISYNC Final Result [facility] * ALL LUTEINIZING HORMONE (02/04/2025 11:27 AM EDT) LUTEINIZING HORMONE(LH) 5.1 . mIU/mL TBH Comment: Adult Female Range Follicular phase 2.4 - 12.6 Ovulation phase 14.0 - 95.6 Luteal phase 1.0 - 11.4 Postmenopausal 7.7 - 58.5 02/04/2025 11:2 7 AM EDT 02/04/2025 11:32 AM EDT Narrative CLINISYNC - 02/05/2025 8:09 AM EDT Bruno Jeferson DO CLINISYNC Final Result [facility] * ALL FOLLICLE STIMULATING HORMONE (02/04/2025 11:27 AM EDT) FSH 4.3 . mIU/mL TBH Comment: Adult Female Range Follicular phase 3.5 - 12.5 Ovulation phase 4.7 - 21.5 Luteal phase 1.7 - 7.7 Postmenopausal 25.8 - 134.8 02/04/2025 11:2 7 AM EDT 02/04/2025 11:32 AM EDT Narrative CLINISYNC - 02/05/2025 8:09 AM EDT [facility] [place]ef[place] CLINISYNC Final Result [facility] * ALL DHEA SULFATE (02/04/2025 11:27 AM EDT) DHEA-SULFATE 293.0 110.0 - 431.7 ug/dL TBH 02/04/2025 11:2 7 AM EDT 02/04/2025 11:32 AM EDT Narrative CLINISYNC - 02/05/2025 8:09 AM EDT Bruno Jeferson DO CLINISYNC Final Result [facility] * ALL DEHYDROEPIANDROSTERONE (02/04/2025 11:27 AM EDT) Pathologist [facility] DHEA, SERUM 208 31 - 701 ng/dL TBH Comment: This test was developed and its performance characteristics determined by [facility]. It has not been cleared or approved by the Food and Drug Administration. Performed at: [address] [id number] Railroad Worker: Montserrat Abdullahi MD, Phone: [phone] 02/04/2025 11:2 7 AM EDT 02/04/2025 11:32 AM EDT Narrative CLINISYNC - 02/10/2025 12:08 PM EDT [facility] [place]eferson DO CLINISYNC Final Result Performing Organization Address [facility]/ZIP Co de Phone Number [facility] * (ABNORMAL) ALL CBC WITH AUTO DIFF (02/04/2025 11:27 AM EDT) Pathologist [facility] TB WBC 8.8 4.0 - 11.0 10 3/uL TBH TBH RBC 4.10(L) 4.20 - 5.40 10 6/uL TBH TBH HGB 13.1 12.0 - 16.0 g/dL TBH TBH HCT 36.9 36.0 - 48.0 % TBH TBH MCV 90.0 81.0 - 99.0 fL TBH TBH MCH 32.0 26.7 - 34.0 pg TBH TBH MCHC 35.5(H) 29.9 - 35.2 g/dL TBH TBH RDW 11.8 11.0 - 15.0 % TBH TBH PLT 289 150 - 450 10 3/uL TBH TBH MPV 10.2 9.5 - 13.5 fL TBH NEUTROPHILS PERCENT AUTO 60.3 43.0 - 75.0 % TBH LYMPHOCYTES PERCENT AUTO 32.3 20.5 - 60.0 % TBH MONOCYTES PERCENT AUTO 6.4 1.7 - 12.0 % TBH TBH EO % 0.6(L) 0.9 - 7.0 % TBH BASOPHILS PERCENT AUTO 0.2 0.2 - 2.0 % TBH IMMATURE GRANULOCYTES PCT AUTO 0.2 0.0 - 0.5 % TBH NEUTROPHILS ABSOLUTE AUTO 5.3 1.4 - 6.5 10 3/uL TBH LYMPHOCYTES ABSOLUTE AUTO 2.8 1.2 - 3.8 10 3/uL TBH MONOCYTES ABSOLUTE AUTO 0.6 0.3 - 0.8 10 3/uL TBH TBH EO # 0.1 0.0 - 0.7 10 3/uL TBH BASOPHILS ABSOLUTE AUTO 0.0 0.0 - 0.1 10 3/uL TBH IMMATURE GRANULOCYTES ABS AUTO 0.02 0.00 - 0.03 10 3/uL TBH 02/04/2025 11:2 7 AM EDT 02/04/2025 11:32 AM EDT Narrative CLINISYNC - 02/04/2025 11:45 AM EDT Bruno Govea DO CLINISYNC Final Result [facility] * ALL ANTI-MULLERIAN HORMONE (02/04/2025 11:27 AM EDT) ANTI-MULLERIAN HORMONE (AMH) 3.68 . ng/mL TBH Comment: For assays employing antibodies, the possibility exists for interference by heterophile antibodies in the samples.1 1.Ivan Tan. Interferences in Immunoassays - still a threat. Clin. Chem. 2000; 46: 3327-3144. This test was developed and its performance characteristics determined by [facility]. It has not been cleared or approved by the Food and Drug Administration. Reference Range: Females 20 - 25y: 1.23 - 11.51 Median 4.70 AMH concentrations of >= 1.06 ng/mL is correlated with a better response to ovarian stimulation, produced more retrievable oocytes and higher odds of live according to Obinna et al. Fertility and Sterility. 2010: 94:3893-7501. The current AMH test method correlates with the study method with a slope of 0.94. Females at risk of ovarian hyperstimulation syndrome or polycystic ovarian syndrome (PCOS) may exhibit elevated serum AMH concentrations. AMH levels from PCOS patients may be 2 to 5 fold higher than age-appropriate reference interval values. Granulosa cell tumors of the ovary may secrete AMH along with other tumor markers. Elevated AMH is not specific for malignancy, and the assay should not be used exclusively to diagnose or exclude an AMH-secreting ovarian tumor. Performed at: [facility] [employer] [address] [place] [id number] Railroad Worker: Carlos REIS, Phone: [phone] 02/04/2025 11:2 7 AM EDT 02/04/2025 11:32 AM EDT Narrative CLINISYNC - 02/07/2025 7:09 PM EDT us Bruno Jeferson DO CLINISYNC Final Result CLINISYNC TBH * US Pelvis w/ TV (02/04/2025 11:01 AM EDT) Anatomical Region Laterality Modality Pelvis Ultrasound 02/04/2025 1:32 PM EDT Impressions 02/04/2025 2:14 PM EDT 1. Follicular ovaries. 2. Normal uterus. TRANSCRIBED BY: ELECTRONICALLY SIGNED BY: Charbel Jorge MD Narrative 02/04/2025 2:14 PM EDT FINDINGS: Uterus 8.1 x 3.6 x 4.7cm Endometrium 8mm Right Ovary 3.6 x 2.0 x 3.2 cm volume 12.0 cc Left Ovary 2.6 x 1.9 x 3.2 cm volume 8 cc The uterus is normal in size and orientation. No worrisome mass lesions are seen. Endometrium appears unremarkable. No fluid is seen within the cul-de-sac. No adnexal mass. Both ovaries contain multiple (more than 10) 2-5 mm follicles. Procedure Note Charbel Jorge MD - 08/12/2025 FINDINGS: Uterus 8.1 x 3.6 x 4.7cm Endometrium 8mm Right Ovary 3.6 x 2.0 x 3.2 cm volume 12.0 cc Left Ovary 2.6 x 1.9 x 3.2 cm volume 8 cc The uterus is normal in size and orientation. No worrisome mass lesionsare seen. Endometrium appears unremarkable. No fluid is seen within eackpk-wq-lkw. No adnexal mass. Both ovaries contain multiple (more than 10) 2-5 mmfollicles. IMPRESSION: 1. Follicular ovaries. 2. Normal uterus. TRANSCRIBED BY: ELECTRONICALLY SIGNED BY: Charbel Jorge MD us Bruno Jeferson DO IMG US PROCEDURES Final Result * POCT , urine manually resulted (01/21/2025 9:44 AM EDT) Preg Test, Ur Negative Negative Urine 01/21/2025 9:44 AM EDT us Bruno Jeferson DO POINT OF CARE TEST ENTER/EDIT OR DERABLES Final Result from Last 3 Months Insurance [facility] Care Teams Sharepoint Application Architect Relationship Specialty Start Date End Date Unallocated, Noms Rina, [facility] [place] [place], [place] [phone] PCP - General 11/24/22
== END 2025-03-26 08:05 | disposition home or self-care (01) ==
LOC: LAB 17:00
PROVIDERS: PCP Nurse Practitioner Primary Care; Visit Provider Obstetrics & Gynecology
DX: Z51.81 Encounter for therapeutic drug level monitoring (principal); Z32.01 Encounter for pregnancy test, result positive
CPT/HCPCS: 36415; 84702

== ENCOUNTER 2025-05-09 09:37 | Outpatient (OUT) | payer BC, SELFPAY ==
--- OUTSIDE RECORDS SUMMARY | 2024-11-19 03:30 | XMS_ITS ---
Author Organization [facility] Servic es Address [address] [place] [address] Care Team Providers Care Turbine Assembler Name Role Phone Milly Earl Primary Care Provider [phone] REASON FOR VISIT FILLING Encounters Encounter Location Date Provider Diagnosis [address] [place] [address] 11/19/2024 Milly Earl Plan Of Treatment No Information Progress Notes * SHANDRA MARINOB: 3 (20 yo F)Acc No.[id number]:11/19/2024 Patient:?BRYCE MARIN :?Milly Earl DDSDOB:2005???Age:19 Y ???Sex:FemaleDate:11/19/2024Phone:[phone]:[address] [place], [place] [address] Subjective: * Chief Complaints: * F ILLING * Electronic signature of Milly Earl DDS on 05/09/2025 at 09:44 AM ESTSign off status: Pending * Provider: Anne Marie Earl DDS Date: 0 11/19/2024 Generated for Printing/Faxing/eTransmitting on:?05/09/2025 09:44 AM EST
--- OUTSIDE RECORDS SUMMARY | 2025-05-09 09:43 | XMS_ITS | Clinical Summary ---
Author Organization [facility] Address [address] [place] [address] Care Team Providers Care Labor Utilization Superintendent Name Role Phone No, Physician Primary Care Provider Unavailabl e Allergies No known active allergies Medications No known medications Active Problems ProblemNoted DateDiagnosed DateSubclinical ojccttlcefrryp40/27/2024Elevated prolactin level4PCOS (polycystic ovarian syndrome)09/20/2023 Encounters DateTypeDepartmentCare PcwvGbfazdixjdt48/17/2025 8:45 AM EDTOffice [facility] [address] [place] [address] from Last 3 Months Immunizations ImmunizationAdministration DatesNext DueDTaP / Hep B / IPV2003,2003 DTaP 5002/16/2007DTaP, Pxyrgxfciot70/29/2008,2003H1N1 Inj Preservative Free 06/05/2009Hep A, Wxgfmmlkucl89/29/2008Hepatitis B1HiB02/22/2008, 2003,2003,2003IPV02/22/2008,02/16/2007,2003MMR02/22/2008 ,02/16/2007,02/16/2005Meningococcal Conjugate (MENACTRA)11/19/2015Pneumococcal Conjugate (Prevnar 7)2003,2003Tdap11/19/2015 Social History Tobacco UseTypesPacks/DayYears UsedDateSmoking Tobacco: NeverPassive Smoke Exposure: CurrentSmokeless Tobacco: NeverAlcohol UseStandard Drinks/WeekComments Never0 (1 standard drink = 0.6 oz pure alcohol)CommentsNoSex and Gender InformationValueDate RecordedSex Assigned at BirthNot on fileLegal SexFemale 03/05/2018 10:59 AM EDTGender LsvrbbstQqvdlp35/12/2018 4:32 PM ESTSexual OrientationChoose not to kkpkeomt96/12/2018 4:32 PM EST Last Filed Vital Signs Vital SignReadingTime TakenCommentsBlood Jvaijozc693/7409/19/2023 1:20 PM EDT Gsonv231609/19/2023 1:20 PM EDTTemperature--Respiratory Rate--Oxygen Saturation-- Inhaled Oxygen Concentration--Aycjop010.6 kg (299 lb)09/19/2023 1:20 PM EDT Fcenow590.3 cm (5' 9 )09/19/2023 1:20 PM EDTBody Mass Index44.1503 1:20 PM EDT Plan of Treatment Health MaintenanceDue DateLast DoneCommentsChlamydia Ctcfilqpo2003Wellness Visit2006Hepatitis A Vaccines (2 of 2 - 2-dose series) Depression Screening/Follow-Up (PHQ-2/9)2015HIV Gwbbudoua58/28/2018HPV Vaccines (1 - 3-dose series)2018Meningococcal B Vaccine (1 of 2 - Standard)2019Hepatitis C Jzsfzirfu27/28/2021Pap Smear2024Varicella Vaccines (1 of 2 - 13+ 2-dose series)5COVID-19 Vaccine ( - season)501/02/2022, 12/23/2020, 12/02/2020Influenza Vaccine (#1) /Tetanus/Diphtheria/Pertussis (7 - Td or Tdap)11/18/2025 11/19/2015, 02/22/2008, 02/16/2007, Additional history existsZoster Vaccines (1 of 2)2053RSV Vaccines (1 - 1-dose 75+ series)2078Pneumococcal VaccineAged Out2003, 2003No longer eligible based on patient's age to complete this topicHIB AdnmwdmiMkecdnvgs74/29/2008, 2003, 2003, Additional history existsIPV BbyevfqzJmpswsyuh71/29/2008, 02/16/2007, 2003, Additional history existsMeningococcal ACWY VaccineAged Out 11/19/2015No longer eligible based on patient's age to complete this topicMMR BogurhrzMsuvlamqh35/31/2025, 02/22/2008, 02/16/2007, Additional history exists Hepatitis B FhtlqwlvRvvrfuksu22/30/2025, 10/21/2024, 2003, Additional history existsRotavirus VaccinesAged OutNo longer eligible based on patient's age to complete this topic Insurance * Guarantor: Casey Hoffman TypeRelation to PatientDate of BirthPhone Billing AufaczuVzmrtmUgudno28/02/1986 [address] [place] [address] * Guarantor: Curry Fuentes TypeRelation to PatientDate of BirthPhone Billing HvvqdlhTkltloYvtq2005 [address] [place] [address] Care Teams Team MemberRelationshipSpecialtyStart DateEnd Date No, Physician [facility] PCP - Wykkwue17/12/18
--- OUTSIDE RECORDS SUMMARY | 2025-05-09 09:43 | XMS_ITS | Clinical Summary ---
Author Organization [facility] Address [address], [address] [place] [address] Care Team Providers Care Engineering Tech Name Role Phone Willow Busby APRN - MANAGER STERILE PROCESSING Primary Care Provider Allergies No known active allergies Medications MedicationSigDispense QuantityRefillsLast FilledStart DateEnd DateStatus naproxen (NAPROSYN) 500 MG tablet Take 1 tablet by mouth 2 times daily (with meals) 20 tablet 5Active Vit-Fe Fumarate-FA ( VITAMINS) 28-0.8 MG TABS Take 1 tablet by mouth daily For desire to conceive 30 tablet 5Active Active Problems ProblemNoted DateDiagnosed DateAbnormal thyroid stimulating hormone (TSH) level 07/15/2022canthosis /20/2282Bbnspgmscp27/20/2023Elevated blood pressure reading without diagnosis of dpjqepxefgsp08/20/2023Exposure to severe acute respiratory syndrome coronavirus 2 (SARS-CoV-2)07/15/2022Headache 07/15/2022Loss of hair07/15/2022Nasal pwwmodskhe05/20/2023oor sleep pattern 07/15/2022resence of intrauterine contraceptive xmwlmw1207/15/2022cute fiszzfgjbvh29/11/2022bnormal uterine /09/2022dult body mass index 40 and over11/01/2021Morbid wfbvilw2911/01/2021bstructive sleep apnea syndrome 11/01/2021 Immunizations ImmunizationAdministration DatesNext DueHep B, ENGERIX-B, RECOMBIVAX-HB, (age 20y+), IM, 1mL12/23/2024,10/21/2024MMR, PRIORIX, M-M-R II, (age 12m+), SC, 0.5mL 09/23/2024 Family History Medical HistoryRelationNameCommentsKidney CancerMaternal GrandfatherLiver Cancer Maternal GrandfatherArthritisMaternal GrandmotherCOPDPaternal Grandmother BiglkuthIjypYxtuuxRhmkqymvZutyiprBorkaFqgganComjbGfru-ZusdacxDjhnfKroa-Mqwfwf AliveMaternal GrandfatherAliveMaternal GrandmotherAliveMotherAlivePaternal GrandfatherDeceasedPaternal GrandmotherAlive Social History Tobacco UseTypesPacks/DayYears UsedDateSmoking Tobacco: NeverSmokeless Tobacco: Never Tobacco Cessation:Counseling Given: Not Answered Alcohol UseStandard Drinks/WeekCommentsYes0 (1 standard drink = 0.6 oz pure alcohol)sociallyC UtilitiesAnswerDate RecordedIn the past 12 months has the [place], [place], oil, or water Opality threatened to shut off services in your home?No08/19/2024UDIT-CAnswerDate RecordedQ1: How often do you have a drink containing alcohol?Never11/07/2022Q2: How many drinks containing alcohol do you have on a typical day when you are drinking?Patient does not drink11/07/2022Q3: How often do you have six or more drinks on one occasion?Never11/07/2022HQ-2 AnswerDate RecordedPHQ-9 Total Tuxbn760Exercise Vital SignAnswerDate RecordedOn average, how many days per week do you engage in moderate to strenuous exercise (like a brisk walk)?4 days08/18/2024On average, how many minutes do you engage in exercise at this level?150+ min08/18/2024Hunger Vital SignAnswerDate RecordedWithin the past 12 months, you worried that your food would run out before you got the money to buymore.Never true08/19/2024Within the past 12 months, the food you bought just didn't last and you didn't have money to get more.Never true08/19/2024PRAPARE - TransportationAnswerDate RecordedIn the past 12 months, has lack of transportation kept you from medical appointments or from getting medications?No08/19/2024In the past 12 months, has lack of transportation kept you from meetings, work, or from getting things needed for daily living?No08/19/2024Housing Stability Vital SignAnswerDate RecordedIn the last 12 months, was there a time when you were not able to pay the mortgage or rent on time?No08/19/2024In the past 12 months, how many times have you moved where you were living?t any time in the past 12 months, were you homeless or living in a mcfp (including now)?No08/19/2024 Food InsecurityAnswerDate RecordedWithin the past 12 months, you worried that your food would run out before you got the money to buymore.Within the past 12 months, the food you bought just didn't last and you didn't have money to get more.Interpersonal Safety Domain Source: IP Abuse ScreeningAnswerDate RecordedRead-Only, Retired: Physical DljzzVlxxzi02/15/2023 Read-Only, Retired: Verbal DqtbsVxuiri00/15/2023Read-Only, Retired: Emotional pingdSulbcn96/15/2023Read-Only, Retired: Financial NkwrpNzlsce18/15/2023Read- Only, Retired: Sexual wikavZllpld27/15/2023CommentsNoSex and Gender InformationValueDate RecordedSex Assigned at UlrgrPdilcz67/23/2025 1:55 PM EST Legal BviJknblh39/10/2013 10:09 AM ESTGender TmwsqkbvAfbjec60/23/2025 1:55 PM ESTSexual OrientationNot on file Last Filed Vital Signs Vital SignReadingTime TakenCommentsBlood Wafngcst177/8006 2:32 PM EDT Zzrgz5376 2:32 PM QKADqtcuoutqye87.8 ??C (98.2 ??F)09/20/2024 2:38 PM EDTRespiratory Jnds540309/20/2024 2:38 PM EDTOxygen Gnuxlmsorg66%12/23/2024 2:32 PM EDTInhaled Oxygen Concentration--Llngqy257.7 kg (275 lb)12/23/2024 2:32 PM DUJEvpzog685.7 cm (5' 7.21 )12/23/2024 2:32 PM EDTBody Mass Index42.806 2:32 PM EDT Plan of Treatment Health MaintenanceDue DateLast DoneCommentsHepatitis A vaccine (2 of 2 - 2-dose series)HIV norjgr9204/22/2018HPV vaccine (1 - 3-dose series) 2018Chlamydia/GC kpaqra6404/22/2019Meningococcal B vaccine (1 of 2 - Standard)2019Hepatitis C jbujpc231Pap smear2024Varicella vaccine (1 of 2 - 13+ 2-dose series)10/21/2024Flu vaccine (#1)01/24/2025 06/05/2009COVID-19 Vaccine ( season)501/02/2022, 12/23/2020, 12/02/2020epression Wtwquc78602/, 08/19/2024DTaP/Tdap/Td vaccine (7 - Td or Tdap)/, 02/22/2008, 02/16/2007, Additional history existsPneumococcal 0-49 years VaccineAged Out2003, 2003No longer eligible based on patient's age to complete this topicHib vaccineCompleted 02/22/2008, 2003, 2003, Additional history existsPolio vaccine Oerlkswla45/29/2008, 02/16/2007, 2003, Additional history exists Meningococcal (ACWY) vaccineAged Out11/19/2015No longer eligible based on patient's age to complete this topicMeasles,Mumps,Rubella (MMR) vaccine Mfbyhzxtjncw63/31/2025, 02/22/2008, 02/16/2007, Additional history exists Hepatitis B skencquIksziuztl74/30/2025, 10/21/2024, 2003, Additional history exists Insurance Care Teams Team MemberRelationshipSpecialtyStart DateEnd Date Willow Busby, LABORATORY ADMINISTRATIVE DIRECTOR - MANAGER STERILE PROCESSING [address] [place] [address] [facility]08/19/24
--- OUTSIDE RECORDS SUMMARY | 2025-05-09 09:43 | XMS_ITS | Encounter Summary ---
Author Organization [facility] Address [address] [place] [address] Care Team Providers Care Media Consultant Name Role Phone Unallocated, Noms Provider MD Primary Care Provi ameena Encounter Details DateTypeDepartmentCare Team (Latest Contact Info)Gexthrwtaqz28/31/2025Telephone [facility] [address] [place] [address] [place] [address] Willow Barnard LPN Social History Tobacco UseTypesPacks/DayYears UsedDateSmoking Tobacco: NeverSmokeless Tobacco: NeverAlcohol UseStandard Drinks/WeekCommentsNever0 (1 standard drink = 0.6 oz pure alcohol)CommentsNoSex and Gender InformationValueDate RecordedSex Assigned at BirthNot on fileLegal AxzQxqmpi50/15/2023 7:21 PM EDTGender Identity Not on fileSexual OrientationNot on filedocumented as of this encounter Miscellaneous Notes * Telephone Encounter - Willow Barnard LPN - 04/25/2025 9:22 AM EDT 04/24/25 @09:55am Patient called and LMOM that she actually dropped 1 of her Femara tablets and didnot know if another one could be sent or if it was ok that she was only going to take 4 days of medication. 04/25/25 @09:26am Called patient and LMOM that another Femara tablet was called into pharmacy with note stating that patient had lost 1 tablet and needed 1 tablet filled to complete course of medication. Advised patient that if she had any further questions she can contact office. --Willow Ernst LPN 04/25/25 @12:23pm Patient returned call and voiced she had missed call earlier, but wanted to discuss the lost pill. 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 Advised patient if she had any further questions/concerns to reach out to the office. Willow Ernst LPN documented in this encounter Plan of Treatment DateTypeDepartmentCare Team (Latest Contact Info)Iadhaykbtho02/15/2025 9:40 AM ESTOffice Visit [facility] [address] [facility] [phone] Bruno Govea DO [address] [facility] [address] [place], [place] [id number] documented as of this encounter Visit Diagnoses Diagnosis PCOS (polycystic ovarian syndrome) Polycystic ovaries Abnormal uterine bleeding (AUB) Female infertility Female infertility of unspecified origin Elevated prolactin level documented in this encounter Care Teams Team MemberRelationshipSpecialtyStart DateEnd Date Unallocated, [place] [address] PCP - General11/24/22documented as of this encounter
--- OUTSIDE RECORDS SUMMARY | 2025-05-09 09:44 | XMS_ITS | Clinical Summary ---
Author Organization [facility] Address [address] [place] [address] Care Team Providers Care Lawn Care Technician Name Role Phone Unavailable Primary Care Provider Unavailabl e Allergies No known active allergies Medications MedicationSigDispense QuantityRefillsLast FilledStart DateEnd DateStatus metFORMIN 500 MG tablet Take 1 tablet by mouth daily.5Active Levothyroxine 25 MCG tablet Take 1 tablet by mouth daily.5Active Vit-Fe Fumarate-FA ( Vitamins) 28-0.8 MG tablet Take by mouth.5Active Aspirin [address] tablet Take 1 tablet by mouth daily.Active Lidocaine HCl (Lidocaine viscous) 2 % Solution Take 15mLs swish and swallow every 3 hours as needed for pain 100 mL 5Active ibuprofen 800 MG tablet Take 1 tablet by mouth 3 times daily as needed for Mild Pain. 21 tablet 5Active Active Problems No known active problems Encounters DateTypeDepartmentCare XxieIdgpmnzwffg79/15/2025Refill [facility] [address] [place] [address] Cassie Alcantara CNP 03/09/2025 6:00 PM EDTOffice Visit [facility] [place] [phone] Cassie Alcantara CNP Pain, dental (Primary Dx)from Last 3 Months Social History Tobacco UseTypesPacks/DayYears UsedDateSmoking Tobacco: NeverSmokeless Tobacco: Never Tobacco Cessation:Counseling Given: Not Answered Alcohol UseStandard Drinks/WeekCommentsYes0 (1 standard drink = 0.6 oz pure alcohol)sometimesCommentsNoSex and Gender InformationValueDate Recorded Sex Assigned at BirthNot on fileLegal AhoBazyfa08/14/2025 5:55 PM EDTGender IdentityNot on fileSexual OrientationNot on file Last Filed Vital Signs Vital SignReadingTime TakenCommentsBlood Pressure--Cgibh498203/09/2025 6:03 PM EDT Pgidkbjsbwb65.6 ??C (97.9 ??F)03/09/2025 6:03 PM EDTRespiratory Zeuc359703/09/2025 6:03 PM EDTOxygen Qszctlyeis25%03/09/2025 6:03 PM EDTInhaled Oxygen Concentration--Afietj317.9 kg (282 lb)03/09/2025 6:03 PM EDTHeight--Body Mass Index-- Plan of Treatment Health MaintenanceDue DateLast DoneCommentsGONORRHEA OYVJFR83 2003HEPATITIS C VIRUS PAPVGMNUY48/28/7813IPP2003HIV SCREENING KEMEYRTFMC25/28/2018HPV VACCINE ADOL (1 - 3-dose series)2018HPV VACCINE (1 - 3-dose series) 2018CHLAMYDIA NATRZJ4004/22/2019CERVICAL CANCER SCREENING DISCUSSION 4COVID-19 VACCINE ( season)501/02/2022, 12/23/2020, 12/02/2020INFLUENZA VACCINE (#1)510/, 06/05/2009TETANUS 6011/19/2015, 2003, 2003PNEUMOCOCCAL VACCINE SERIESAged Out 2003, 2003No longer eligible based on patient's age to complete this topicTDAP (ADULT)Yftebkadr26/26/2016HEP B MQQEVKTHcbahqvjo48/30/2025, 10/21/2024, 2003, Additional history exists Insurance
--- OUTSIDE RECORDS SUMMARY | 2025-05-09 09:44 | XMS_ITS | Clinical Summary ---
Author Organization [facility] Address [address] [place] [address] Care Team Providers Care Creative Services Producer Name Role Phone Unallocated, Noms Provider Primary Care Provi ameena Allergies No known active allergies Medications MedicationSigDispense QuantityRefillsLast FilledStart DateEnd DateStatus Vit-Fe Fumarate-FA ( Vitamins) 28-0.8 MG tablet TAKE 1 TABLET BY MOUTH DAILY for desire to conceiveActive metFORMIN (Glucophage) 500 MG tablet Indications:PCOS (polycystic ovarian syndrome),Abnormal uterine bleeding (AUB) Take 1 tablet (500 mg) by mouth in the morning. Take with meals. 30 tablet 110507/6Active levothyroxine (Synthroid, Levoxyl) 25 MCG tablet Indications:PCOS (polycystic ovarian syndrome),Other specified hypothyroidism Take 1 tablet (25 mcg) by mouth in the morning. Take before meals. 30 tablet 5Active medroxyPROGESTERone (Provera) 10 MG tablet Indications:PCOS (polycystic ovarian syndrome),Abnormal uterine bleeding (AUB), Other specified hypothyroidismTake 1 tablet (10 mg) by mouth Daily 10 tablet 5Active letrozole (Femara) 2.5 MG chemo tablet Indications:PCOS (polycystic ovarian syndrome),Abnormal uterine bleeding (AUB), Female infertility,Elevated prolactin levelTake 1 tablet (2.5 mg total) by mouth Daily for 5 days. 5 tablet 10/27/Expired letrozole (Femara) 2.5 MG chemo tablet Indications:PCOS (polycystic ovarian syndrome),Abnormal uterine bleeding (AUB), Female infertility,Elevated prolactin levelTake 1 tablet (2.5 mg total) by mouth Daily for 1 dose. 1 tablet Discontinued letrozole (Femara) 2.5 MG chemo tablet Indications:PCOS (polycystic ovarian syndrome),Abnormal uterine bleeding (AUB), Female infertility,Elevated prolactin levelTake 1 tablet (2.5 mg total) by mouth Daily for 1 dose. 1 tablet Expired Encounters DateTypeDepartmentCare EzxbQkppgkjrepx98/31/2025Telephone [facility] [address] [facility] [place] [phone] Willow Barnard LPN 04/21/2025Telephone [facility] [address] [facility] [place] [address] Willow Barnard LPN 04/08/2025Telephone [facility] [address] [facility] [facility] [place] [address] Willow Barnard, HOSPITAL SALES REPRESENTATIVE 04/01/2025Telephone [facility] [address] [facility] [place] [address] Willow Barnard LPN 02/26/2025linisync Result Encounter [facility] External Department Unsolicited Bruno Govea DO 02/26/2025Telephone [facility] [address] [facility] [place] [address] Arlene Olson MA 02/13/2025 10:10 AM EDTOffice Visit [facility] [address] [place] [address] Bruno Govea DO PCOS (polycystic ovarian syndrome); Female infertility; Other specified zflzemvllctbvc09/21/2025amboo flowsheet [facility] [address] [facility] [place] [address] Bruno Govea DO 02/12/2025Telephone [facility] [address] [facility] [place] [address] Nishant Archana, OZZIE 02/07/2025bstract [facility] [address] [place] [address] [place] [address] Bruno Govea DO from Last 3 Months Social History Tobacco UseTypesPacks/DayYears UsedDateSmoking Tobacco: NeverSmokeless Tobacco: Never Tobacco Cessation:Counseling Given: No Alcohol UseStandard Drinks/WeekCommentsNever0 (1 standard drink = 0.6 oz pure alcohol)CommentsNoSex and Gender InformationValueDate RecordedSex Assigned at BirthNot on fileLegal JmiMxcbsm48/15/2023 7:21 PM EDTGender Identity Not on fileSexual OrientationNot on file Last Filed Vital Signs Vital SignReadingTime TakenCommentsBlood Ilzgamyz531/7008 10:42 AM EDT Pulse--Temperature--Respiratory Rate--Oxygen Saturation--Inhaled Oxygen Concentration--Aszeqe745 kg (275 lb)02/13/2025 10:42 AM MSAVfyhlt513.7 cm (5' 8 )11/24/2022 4:13 PM EDTBody Mass Index41.8111/24/2022 4:13 PM EDT Plan of Treatment DateTypeDepartmentCare Team (Latest Contact Info)Wtoxfuhsehc08/15/2025 9:40 AM ESTOffice Visit [facility] [address] [place] [address] [place] [address] Bruno Govea DO [address] [place] [address] [address] [place], [place] [id number] Health MaintenanceDue DateLast DoneCommentsCOVID-19 Vaccine ( season) /02/2022, 12/23/2020, 12/02/2020Influenza Vaccine (#1)2025 04/12/2023neumococcal Vaccine: Pediatrics (0 to 5 Years) and At-Risk Patients (6 to 64 Years)Aged OutNo longer eligible based on patient's age to complete this topic Procedures Procedure NamePriorityDate/TimeAssociated DiagnosisCommentsTBH PREG QUANT HCG Sshyiiz2802/26/2025 5:16 PM EDT from Last 3 Months Results * [facility] PREG QUANT HCG (02/26/2025 5:16 PM EDT)ComponentValueRef RangeTest Method Analysis TimePerformed AtPathologist SignatureHCG QUANTITATIVE<1mIU/mLTBH Comment: 5-50 ? 0.2-1 WEEK 50-500 ? 1-2 WEEKS 100-5,000 ?2-3 WEEKS 500-10,000 ? 3-4 WEEKS 1,000-50,000 ?? 4-5 WEEKS 10,000-100,000 5-6 WEEKS 15,000-200,000 6-8 WEEKS 10,000-100,000 2-3 MONTHS Specimen (Source)Anatomical Location / LateralityCollection Method / Volume Collection TimeReceived Time02/26/2025 5:16 PM EDT02/26/2025 5:17 PM EDT Narrative [facility] - 02/26/2025 6:29 PM EDT Authorizing ProviderResult TypeResult StatusCorey Jeferson DOCLINISYNCFinal Result Performing OrganizationAddressCity/State/ZIP CodePhone Number CLINISYNC [facility] from Last 3 Months Insurance Care Teams Team MemberRelationshipSpecialtyStart DateEnd Date Unallocated, Noms Rina, [address] [place] [address] [facility] - General11/24/22
== END 2025-05-09 09:38 | disposition home or self-care (01) ==
PROVIDERS: PCP Nurse Practitioner Primary Care; Visit Provider Obstetrics & Gynecology
DX: E28.2 Polycystic ovarian syndrome (principal); N93.9 Abnormal uterine and vaginal bleeding, unspecified; N97.9 Female infertility, unspecified; R79.89 Other specified abnormal findings of blood chemistry
CPT/HCPCS: 36415; 84144

== ENCOUNTER 2025-06-06 10:27 | Outpatient (OUT) | payer BC, SELFPAY | END 2025-06-06 10:28 | disposition home or self-care (01) | LOC: LAB 10:28 | PROVIDERS: PCP Nurse Practitioner Primary Care; Visit Provider Obstetrics & Gynecology | DX: E28.2 Polycystic ovarian syndrome (principal); N93.9 Abnormal uterine and vaginal bleeding, unspecified; N97.9 Female infertility, unspecified; R79.89 Other specified abnormal findings of blood chemistry | CPT/HCPCS: 36415; 84144 ==